=== PATIENT | male | born 1955 ===

== ENCOUNTER 2019-04-27 23:59 | Emergency (ER) | payer OTHER ==
[2019-04-28] MEDS ORDERED: Ketorolac Tromethamine 60 MG/2 ML VIAL ONE (00:31)
[2019-04-28 01:24] LABS: Anion Gap 13 mmol/L (10-20); BUN (Urea Nitrogen) 15 mg/dL (8.4-25.7); Calc. Creatinine Clearance 0 mL/min (70-130); Calcium 9.4 mg/dL (7.8-10.44); Carbon Dioxide 24 mmol/L (23-31); Chloride 108 mmol/L (98-107); Estimated GFR-MDRD 72; Glucose 162 mg/dL (80-115); Potassium 4.5 mmol/L (3.5-5.1); Sodium 140 mmol/L (136-145)
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
[2019-04-28] MEDS ORDERED: ISOVUE-370 76%-LOCM 1 ML ONE (11:54)
== END 2019-04-28 02:45 | disposition home or self-care (01) ==
LOC: ERS 23:59
DX: S09.90XA Unspecified injury of head, initial encounter (principal); T14.8XXA Other injury of unspecified body region, initial encounter; E11.9 Type 2 diabetes mellitus without complications; E78.5 Hyperlipidemia, unspecified; Z79.84 Long term (current) use of oral hypoglycemic drugs; Z79.899 Other long term (current) drug therapy; V43.52XA Car driver injured in collision with other type car in traffic accident, initial encounter
CPT/HCPCS: 36415; 70450; 71260; 72125; 74177; 80048; 96372; J1885; Q9966